=== PATIENT | female | born 1985 | race Caucasian/White ===

== ENCOUNTER 2023-09-21 00:49 | Day surgery (SDC) | payer OTHER, SELFPAY ==
[2023-09-17 14:55] VITALS: BMI 32.0
--- NOTE | 2023-09-17 15:04 | PC.NURSE ---
Report to the Outpatient Waiting Room, entrance under the green pavilion located off [facility], at time __0900__ on date _09/21/23. Planned Procedure Time: _1100_. Time changes happen often and if your time is changed the preop area will call you the afternoon before. - You and your visitor will be asked to self-screen and do not enter if you have any COVID symptoms. - A mask is optional within the hospital at this time. Patients may have clear liquids (water, carbonated beverages, clear teas, apple juice) until 8 hours prior to surgery with a maximum of 20 ounces. - No food from midnight until time of surgery - Infants may have breast milk until 4 hours before surgery, formula 6 hours prior to surgery. - Children will be allowed to drink immediately following surgery. If applicable, please bring a bottle or sippy cup to assist with drinking. Juice, water, soda, and popsicles are readily available. For infants on formula, please bring formula the day of surgery. Pacifiers are allowed. Take the following medications with a SIP of water the morning of surgery: NONE DO NOT STOP ANY OF YOUR OTHER PRESCRIPTION MEDICATIONS PRIOR TO SURGERY ?EXCEPT THE FOLLOWING Medications to discontinue per physician NONE Date to take last dose Please no make-up, nail tamazight, hairspray, perfume, deodorant, or body powder the day of surgery. No jewelry (including any body piercings) or valuables the day of surgery, leave them at home. Please take a shower or bath the night before, or the morning of, surgery with an antibacterial soap. Wear comfortable, loose fitting clothing. Children are encouraged to wear pajamas. - Jewelry must be removed prior to entering the operating room. Rings and piercings that are not removed may be cut off. - The hospital will not accept responsibility for valuables. - Please leave all valuables, including medications, at home the day of surgery. If you are going home after surgery, a licensed local flatbed driver must drive you home. - NO public transportation without another adult if you receive anesthesia. - We recommend that an adult stay with you for 24 hours following discharge. - We also recommend that you do not drive, make important decision, drink alcoholic beverages, or take any drugs that were not prescribed by your health care provider for at least 24 hours after your discharge time. For Pediatric surgeries, we recommend two adults accompany the child home. Follow any additional instructions given to you from your surgeon. If you or anyone in your household have experienced Covid symptoms in the past week, please notify your surgeon or the nurse liaison at the phone number below for possible testing. Telephone instructions given to _PATIENT_and asked if any additional questions and then verbalized understanding. Patient advised to call surgeon office or pre surgery nurse liaison [phone] if any additional questions.
[2023-09-21] VITALS (14 sets, daily range): BP systolic 106–154; BP diastolic 71–98; PULSE 73–126; RESP 12–20; TEMP 36.1–36.8; O2SAT 92–100
--- NOTE | 2023-09-21 07:05 | P.HPUP_ITS ---
History and Physical Update Update Date/Time: 09/21/23 07:05 Patient seen and examined in pre-operative holding area. No interval change in medical history or symptoms. Patient remembers previous discussion of benefits and alternatives to procedure. Continues to desire to proceed with bilateral breast reduction. I reviewed the risks including but not limited to bleeding ,infection, asymmetry, undesireable cosmetic appearance, partial/total skin/nipple loss, no change or worsening of symptoms, change in sensation. I discussed the possible use of assistants and their level of participation in the case. Patient stated understanding and signed the consent form wishing to pr oceed
--- NOTE | 2023-09-21 07:05 | P.OP_ITS ---
Procedure Note - Detailed Date of Procedure 09/21/23 Pre-op Diagnosis breast hypertrophy Post-op Diagnosis Same Procedure Performed bilateral breast reduction Surgeon Cinthya Monahan MD Dry Cans Back Tender krystal campos pa-c Anesthesia General Description of Procedure Patient was seen in the preoperative holding area where consent form was signed and breast were marked for an inferior pedicle Lowery pattern reduction. She was taken back to the operating room placed on the table in a supine position. Time-out was performed with Anesthesia, surgeon, and staff high Gram patient's name site and surgery to be performed. SCDs were placed on the lower extremities and inflated. Antibiotics were given IV. After general anesthesia was administered the breasts were prepped and draped in usual sterile fashion. I took my attention to the right breast where a saline moistened lap pad and [facility] her clamp was used to create a breast tourniquet. 38 mm nipple Sizer was used to circumscribe the nipple-areolar complex and then I proceeded with incision with 15 blade scalpel and de-epithelialized in 9 cm wide inferior pedicle. MMI other skin incisions and then used Bovie cautery to elevate my superior skin flaps and Akash's plane down to the level of the chest wall exposing the entire breast tissue. I proceeded with resection of 1202.5 g of tissue from the right breast. I irrigated with normal saline and hemostasis with Bovie cautery. The pedicles plicated with 2-0 Vicryl suture. This appeared to be a reasonable size and shape for the patient's reconstructive desires. After further round of irrigation hemostasis I secured the T junction with 2-0 Prolene suture 3-0 Vicryl was used for dermis the nipple was brought out 5-1/2 cm above the inframammary fold at the most prominent portion of the breast at the breast midline. This was secured with 3-0 Vicryl suture and 4-0 Monocryl for subcuticular closure. The nipple appeared viable with good cap refill. Next item attention to the left breast where the same procedure was performed using the breast tourniquet then 38 mm nipple Sizer and de epithelializing a 9 cm wide inferior pedicle. I used 15 blade scalpel Bovie cautery to the Liane skin incisions and elevated skin flaps to converse plane down to the chest wall to expose entire breast tissue. I proceeded with resection of 1136 g of tissue from the left breast with Bovie cautery. This appeared to be symmetric in size and volume to the right breast. An area of normal saline and hemostasis with Bovie cautery. I plicated the pedicle 2-0 Vicryl suture. 2-0 Prolene was used to secure the T-junction. 3-0 Vicryl was used for dermis and 4-0 Monocryl for subcuticular closure. Again the nipple was brought up 5.5 cm above the inframammary fold at the most prominent portion of the breast at the breast midline and secured with 3-0 Vicryl suture and 4-0 Monocryl. The nipple appeared viable with good cap refill. The symmetry was reasonable to the right breast. I injected 20 cc of 1% lidocaine with epinephrine episode working plane along the anterior axilla line inframammary fold of each breast. A dressing of Mastisol Steri-Strips 4x4s ABDs and a breast binder was then applied patient was awakened anesthesia and transferred to recovery in stable condition. Complications: None Estimated blood loss: 80 cc Disposition: Patient tolerated the procedure well and be going later today. Krystal Campos PA-C was essentail for positioning, retraction, hemostasis, resection, closure and dressing placement [facility] [place] Billing Surgery - Charge Forward: Surgery Billing ([id number] same codes for krystal adding mod )
[2023-09-21] MEDS: FAMOTIDINE 20 MG/2 ML VIAL IV PUSH (08:42)
--- NOTE | 2023-09-21 09:42 | WPDANESEPPF ---
Anes - Initial Pre Proc Eval Procedure: Operation Date: 09/21/23 10:30 Proposed Procedures p Bilateral Breast Reduction - Cinthya Monahan MD Date/Time: 09/21/23 09:42 Surgeon: Cinthya Monahan MD Pre Op Diagnosis: breast hypertrophy Patient Data Age: 38 Gender: F Height: 1.68 m Weight: 91.7 kg Last Vital Signs Temp 36.8 C 09/21/23 08:18 Pulse 89 09/21/23 08:18 Resp 16 09/21/23 08:18 BP 148/98 H 09/21/23 08:18 Pulse Ox 99 09/21/23 08:18 O2 Del Method Room Air 09/21/23 08:18 Allergies Allergy/AdvReac Type Severity Reaction Status Date / Time codeine AdvReac Nausea and Verified 09/21/23 09:43 Vomiting Home Medications Medication Instructions Recorded Confirmed Type duloxetine 30 mg capsule,delayed 30 mg PO HS 09/17/23 09/17/23 History release Patient hx anesthesia problems: none Family hx anesthesia problems: none Results Review: All pre-operative results and documents have been reviewed as part of the pre-operative evaluation. [facility] Past Medical History Medical History (Updated 09/21/23 @ 09:45 by Piyush Monreal MD) Anxiety Cerebral palsy left side weakness Obesity Surgical History Surgical History (Updated 09/21/23 @ 09:46 by Piyush Monreal MD) H/O Achilles tendon repair History of appendectomy History of section Social History Social History Years smoked: 1 Smoking status: Former smoker Tobacco type: cigarettes Additional smoking assessment comments: SOCIAL SMOKER Alcohol intake: current Alcohol use details: RARE USE Substance use: never Living arrangements: alone Anes - Eval Final PreProcedure Day of Procedure 09/21/23 09:42 Patient weight: obese Lungs: clear to auscultation Airway: Mallampati scale class II Neurological: alert and oriented Last oral intake: >/= 8 hours ASA classification: III Emergent: no Anesthetic plan: proceed Anesthesia type and monitoring: general Results Review: All pre-operative results and documents have been reviewed as part of the pre-operative evaluation. Informed Consent: The patient's anesthetic plan and its attendant risks and benefits were discussed with the patient/family/POA. Questions were solicited and answers provided to the satisfaction of the patient/family/POA.
[2023-09-21] MEDS: LACTATED RINGERS 1,000 ML 30 ML IV CONT ×3 (10:10→14:00)
[2023-09-21] MEDS: SCOPOLAMINE 1 MG PATCH 1 PATCH TRANSDERM (10:11)
[2023-09-21] MEDS: ceFAZolin 2 GM/D5W 50 ML 2 GM/50 ML BAG IVPB (10:47)
[2023-09-21] MEDS: LIDO 1%/EPINEPHRINE 1:100,000 20 ML VIAL 30 ML INFILTRATE (11:07)
[2023-09-21] MEDS: fentaNYL CITRATE INJ (*CRX) 100 MCG/2 ML VIAL 25 MCG IV PUSH ×8 (13:53→14:41)
[2023-09-21] MEDS: LABETALOL HCL INJ 100 MG/20 ML VIAL IV PUSH (14:14)
[2023-09-21] MEDS: ONDANSETRON INJ 4 MG/2 ML VIAL IV PUSH (15:15)
[2023-09-21] MEDS: oxyCODONE HCL (*CRX) 5 MG TAB IR PO (15:30)
== END 2023-09-21 16:28 | disposition home or self-care (01) ==
PROVIDERS: PCP Family Medicine; Visit Provider Plastic Surgery
PROC: 0HBV0ZZ Excision of Bilateral Breast, Open Approach (ICD-10-PCS; CPT 19318; principal; 2023-09-21 10:30)
DX: N62 Hypertrophy of breast (principal); F41.9 Anxiety disorder, unspecified; G80.9 Cerebral palsy, unspecified; E66.9 Obesity, unspecified; Z68.32 Body mass index [BMI] 32.0-32.9, adult; Z87.891 Personal history of nicotine dependence
CPT/HCPCS: 19318; 88305; A9270; J0330; J0690; J1100; J1170; J2250; J2405; J3010; J7120